=== PATIENT | male | born 1945 | race Caucasian/White ===

== ENCOUNTER 2016-03-23 09:01 | Outpatient (RCR) | payer MEDICARE, OTHER | END 2016-04-20 13:17 | LOC: OPPGERO 09:01 | DX: F33.1 Major depressive disorder, recurrent, moderate (principal); F41.1 Generalized anxiety disorder ==

== ENCOUNTER 2016-04-21 08:54 | Outpatient (RCR) | payer MEDICARE, OTHER | END 2016-05-18 10:22 | LOC: OPPGERO 08:54 | DX: F33.1 Major depressive disorder, recurrent, moderate (principal); F41.1 Generalized anxiety disorder ==

== ENCOUNTER 2016-05-19 07:28 | Outpatient (RCR) | payer MEDICARE, OTHER | END 2016-06-18 15:03 | LOC: OPPGERO 07:28 | DX: F33.1 Major depressive disorder, recurrent, moderate (principal); F41.1 Generalized anxiety disorder ==

== ENCOUNTER 2016-06-19 09:00 | Outpatient (RCR) | payer MEDICARE, OTHER | END 2016-07-16 15:28 | LOC: OPPGERO 09:00 | DX: F33.1 Major depressive disorder, recurrent, moderate (principal); F41.1 Generalized anxiety disorder ==

== ENCOUNTER 2016-07-19 08:14 | Outpatient (RCR) | payer MEDICARE, OTHER | END 2016-08-18 16:49 | LOC: OPPGERO 08:14 | DX: F33.1 Major depressive disorder, recurrent, moderate (principal); F41.1 Generalized anxiety disorder ==

== ENCOUNTER 2016-08-19 11:12 | Outpatient (RCR) | payer MEDICARE, OTHER | END 2016-09-17 15:45 | LOC: OPPGERO 11:12 | DX: F33.1 Major depressive disorder, recurrent, moderate (principal); F41.1 Generalized anxiety disorder ==

== ENCOUNTER → 2016-08-27 | Outpatient (CLI) | payer MEDICARE | LOC: LAB 16:00 | DX: Z12.11 Encounter for screening for malignant neoplasm of colon (principal) ==

== ENCOUNTER 2016-09-20 08:44 | Outpatient (RCR) | payer MEDICARE, OTHER | END 2016-10-18 15:01 | LOC: OPPGERO 08:44 | DX: F33.1 Major depressive disorder, recurrent, moderate (principal); F41.1 Generalized anxiety disorder ==

== ENCOUNTER 2016-10-19 08:49 | Outpatient (RCR) | payer MEDICARE | END 2016-11-18 14:31 | disposition still patient (30) | LOC: OPPGERO 08:49 | DX: F33.1 Major depressive disorder, recurrent, moderate (principal); F41.1 Generalized anxiety disorder ==

== ENCOUNTER 2016-11-19 07:55 | Outpatient (RCR) | payer MEDICARE, OTHER | END 2016-12-17 15:15 | LOC: OPPGERO 07:55 | DX: F33.1 Major depressive disorder, recurrent, moderate (principal); F41.1 Generalized anxiety disorder ==

== ENCOUNTER 2016-12-19 09:00 | Outpatient (RCR) | payer MEDICARE, OTHER | END 2017-01-18 16:19 | disposition still patient (30) | LOC: OPPGERO 09:00 | DX: F33.1 Major depressive disorder, recurrent, moderate (principal); F41.1 Generalized anxiety disorder ==

== ENCOUNTER 2017-01-19 09:05 | Outpatient (RCR) | payer MEDICARE, OTHER | END 2017-02-17 12:55 | disposition still patient (30) | LOC: OPPGERO 09:05 | DX: F33.1 Major depressive disorder, recurrent, moderate (principal); F41.1 Generalized anxiety disorder ==

== ENCOUNTER → 2017-02-15 | Outpatient (CLI) | payer MEDICARE, OTHER ==
[2017-02-15 14:05] LABS: EOS # 0.2 (0.04-0.40); EOS % 3.2 % (0.0-4.0); HEMATOCRIT 44.8 % (42.0-52.0); HEMOGLOBIN 15.1 g/dL (13.5-18.0); MEAN CELL VOLUME 91 fl (78-100); MEAN CORPUSCULAR HEMOGLOBIN 31 pg (27-31); MEAN CORPUSCULAR HGB CONC 34 g/dL (33-37); MEAN PLATELET VOLUME 9.9 fl (7.4-10.4); MONO # 0.7 (0.20-0.80); NEU # 3.7 (1.40-6.50); PLATELET COUNT 227 K/mm3 (130-400); RED BLOOD COUNT 4.93 M/mm3 (4.20-5.60); RED CELL DISTRIBUTION WIDTH 12.6 % (11.5-14.5); WHITE BLOOD COUNT 6.6 K/mm3 (4.8-10.8)
[2017-02-15 14:21] LABS: ALBUMIN 4.3 g/dL (3.5-5.0); BUN/CREATININE RATIO 22.7 (6.0-26.0); CALCIUM 9.7 mg/dL (8.4-10.2); POTASSIUM 4.3 mmol/L (3.6-5.0); TOTAL PROTEIN 7.1 g/dL (6.3-8.2)
== END ==
LOC: LAB 13:48
PROVIDERS: Nurse Practitioner Family
DX: E11.9 Type 2 diabetes mellitus without complications (principal); Z12.5 Encounter for screening for malignant neoplasm of prostate; I10 Essential (primary) hypertension; E78.2 Mixed hyperlipidemia

== ENCOUNTER 2017-02-18 09:00 | Outpatient (RCR) | payer MEDICARE, OTHER | END 2017-03-18 15:30 | LOC: OPPGERO 09:00 | DX: F33.9 Major depressive disorder, recurrent, unspecified (principal); F41.9 Anxiety disorder, unspecified ==

== ENCOUNTER 2017-03-22 09:00 | Outpatient (RCR) | payer MEDICARE, OTHER | END 2017-04-20 15:20 | LOC: OPPGERO 09:00 | DX: F33.9 Major depressive disorder, recurrent, unspecified (principal); F41.9 Anxiety disorder, unspecified ==

== ENCOUNTER 2017-04-21 10:31 | Outpatient (RCR) | payer MEDICARE, OTHER | END 2017-05-18 14:15 | LOC: OPPGERO 10:31 | DX: F33.1 Major depressive disorder, recurrent, moderate (principal); F41.1 Generalized anxiety disorder; E11.9 Type 2 diabetes mellitus without complications; I10 Essential (primary) hypertension; E78.00 Pure hypercholesterolemia, unspecified; T78.40XA Allergy, unspecified, initial encounter; Z88.8 Allergy status to other drugs, medicaments and biological substances; Z79.82 Long term (current) use of aspirin; Z79.84 Long term (current) use of oral hypoglycemic drugs ==

== ENCOUNTER 2017-05-19 10:04 | Outpatient (RCR) | payer MEDICARE, OTHER | END 2017-06-17 11:15 | LOC: OPPGERO 10:04 | DX: F33.1 Major depressive disorder, recurrent, moderate (principal); F41.1 Generalized anxiety disorder; E11.9 Type 2 diabetes mellitus without complications; I10 Essential (primary) hypertension; E78.00 Pure hypercholesterolemia, unspecified; J30.2 Other seasonal allergic rhinitis; Z79.84 Long term (current) use of oral hypoglycemic drugs; Z79.82 Long term (current) use of aspirin; Z88.8 Allergy status to other drugs, medicaments and biological substances ==

== ENCOUNTER 2017-06-20 08:56 | Outpatient (RCR) | payer MEDICARE, OTHER | END 2017-07-18 13:11 | LOC: OPPGERO 08:56 | DX: F33.1 Major depressive disorder, recurrent, moderate (principal); F41.1 Generalized anxiety disorder; E11.9 Type 2 diabetes mellitus without complications; I10 Essential (primary) hypertension; E78.00 Pure hypercholesterolemia, unspecified; J30.2 Other seasonal allergic rhinitis; Z88.8 Allergy status to other drugs, medicaments and biological substances; Z79.82 Long term (current) use of aspirin; Z79.84 Long term (current) use of oral hypoglycemic drugs ==

== ENCOUNTER 2017-07-19 08:35 | Outpatient (RCR) | payer MEDICARE, OTHER | END 2017-08-18 13:34 | LOC: OPPGERO 08:35 | DX: F33.1 Major depressive disorder, recurrent, moderate (principal); F41.1 Generalized anxiety disorder; E11.9 Type 2 diabetes mellitus without complications; I10 Essential (primary) hypertension; E78.5 Hyperlipidemia, unspecified; J30.2 Other seasonal allergic rhinitis; Z79.82 Long term (current) use of aspirin; Z79.84 Long term (current) use of oral hypoglycemic drugs ==

== ENCOUNTER 2017-08-19 08:15 | Outpatient (RCR) | payer MEDICARE, OTHER | END 2017-09-16 13:05 | LOC: OPPGERO 08:15 | DX: F33.1 Major depressive disorder, recurrent, moderate (principal); F41.1 Generalized anxiety disorder; E11.9 Type 2 diabetes mellitus without complications; I10 Essential (primary) hypertension; E78.00 Pure hypercholesterolemia, unspecified; Z79.84 Long term (current) use of oral hypoglycemic drugs; Z79.899 Other long term (current) drug therapy; Z63.79 Other stressful life events affecting family and household; Z59.8 Other problems related to housing and economic circumstances ==

== ENCOUNTER 2017-09-19 09:29 | Outpatient (RCR) | payer MEDICARE, OTHER | END 2017-10-18 14:15 | LOC: OPPGERO 09:29 | DX: F33.1 Major depressive disorder, recurrent, moderate (principal); F41.1 Generalized anxiety disorder; E11.9 Type 2 diabetes mellitus without complications; E78.00 Pure hypercholesterolemia, unspecified; I10 Essential (primary) hypertension; Z59.8 Other problems related to housing and economic circumstances; Z63.8 Other specified problems related to primary support group; Z79.84 Long term (current) use of oral hypoglycemic drugs; Z79.82 Long term (current) use of aspirin; Z79.899 Other long term (current) drug therapy ==

== ENCOUNTER 2017-10-19 08:28 | Outpatient (RCR) | payer MEDICARE, OTHER | END 2017-11-18 13:34 | LOC: OPPGERO 08:28 | DX: F33.1 Major depressive disorder, recurrent, moderate (principal); F41.1 Generalized anxiety disorder; Z59.8 Other problems related to housing and economic circumstances; Z63.8 Other specified problems related to primary support group; E11.9 Type 2 diabetes mellitus without complications; I10 Essential (primary) hypertension; E78.00 Pure hypercholesterolemia, unspecified; Z79.84 Long term (current) use of oral hypoglycemic drugs; Z79.82 Long term (current) use of aspirin; Z79.899 Other long term (current) drug therapy ==

== ENCOUNTER 2017-11-22 08:47 | Outpatient (RCR) | payer MEDICARE, OTHER | END 2017-12-16 13:55 | LOC: OPPGERO 08:47 | DX: F33.1 Major depressive disorder, recurrent, moderate (principal); F41.1 Generalized anxiety disorder; Z59.8 Other problems related to housing and economic circumstances; Z63.79 Other stressful life events affecting family and household; E11.9 Type 2 diabetes mellitus without complications; I10 Essential (primary) hypertension; E78.00 Pure hypercholesterolemia, unspecified; Z79.84 Long term (current) use of oral hypoglycemic drugs; Z79.82 Long term (current) use of aspirin; Z79.899 Other long term (current) drug therapy ==

== ENCOUNTER 2017-12-19 09:32 | Outpatient (RCR) | payer MEDICARE, OTHER | END 2018-01-18 14:15 | LOC: OPPGERO 09:32 | DX: F33.1 Major depressive disorder, recurrent, moderate (principal); F41.1 Generalized anxiety disorder; Z59.8 Other problems related to housing and economic circumstances; Z63.8 Other specified problems related to primary support group; E11.9 Type 2 diabetes mellitus without complications; I10 Essential (primary) hypertension; E78.00 Pure hypercholesterolemia, unspecified; J30.2 Other seasonal allergic rhinitis; Z79.84 Long term (current) use of oral hypoglycemic drugs; Z79.899 Other long term (current) drug therapy ==

== ENCOUNTER → 2018-01-09 | Outpatient (CLI) | payer MEDICARE, OTHER ==
[2018-01-09 19:06] LABS: BASO # 0.1 (0.02-0.10); EOS # 0.3 (0.04-0.40); EOS % 3.4 % (0.0-4.0); HEMATOCRIT 46.5 % (42.0-52.0); HEMOGLOBIN 15.5 g/dL (13.5-18.0); LYMPH# 1.9 (1.50-4.00); MEAN CELL VOLUME 90 fl (78-100); MEAN CORPUSCULAR HEMOGLOBIN 30 pg (27-31); MEAN CORPUSCULAR HGB CONC 33 g/dL (33-37); MEAN PLATELET VOLUME 10.1 fl (7.4-10.4); MONO # 0.7 (0.20-0.80); NEU # 5.5 (1.40-6.50); PLATELET COUNT 259 K/mm3 (130-400); RED BLOOD COUNT 5.15 M/mm3 (4.20-5.60); RED CELL DISTRIBUTION WIDTH 13.2 % (11.5-14.5); WHITE BLOOD COUNT 8.5 K/mm3 (4.8-10.8)
[2018-01-09 20:50] LABS: ALBUMIN 4.5 g/dL (3.5-5.0); CALCIUM 10.3 mg/dL (8.4-10.2); POTASSIUM 4.1 mmol/L (3.6-5.0); TOTAL BILIRUBIN 0.9 mg/dL (0.2-1.3); TOTAL PROTEIN 7.2 g/dL (6.3-8.2)
== END ==
LOC: LAB 17:30
PROVIDERS: Family Medicine
DX: Z12.5 Encounter for screening for malignant neoplasm of prostate (principal); Z00.00 Encounter for general adult medical examination without abnormal findings; E11.9 Type 2 diabetes mellitus without complications; E78.5 Hyperlipidemia, unspecified

== ENCOUNTER → 2018-01-11 | Outpatient (CLI) | payer MEDICARE, OTHER | LOC: LAB 15:59 | DX: E11.9 Type 2 diabetes mellitus without complications (principal) ==

== ENCOUNTER 2018-01-19 09:35 | Outpatient (RCR) | payer MEDICARE, OTHER | END 2018-02-17 15:14 | LOC: OPPGERO 09:35 | DX: F33.1 Major depressive disorder, recurrent, moderate (principal); F41.1 Generalized anxiety disorder; Z59.8 Other problems related to housing and economic circumstances; Z63.8 Other specified problems related to primary support group; E11.9 Type 2 diabetes mellitus without complications; I10 Essential (primary) hypertension; E78.00 Pure hypercholesterolemia, unspecified; J30.2 Other seasonal allergic rhinitis; Z79.84 Long term (current) use of oral hypoglycemic drugs; Z79.82 Long term (current) use of aspirin; Z79.899 Other long term (current) drug therapy ==

== ENCOUNTER 2018-02-20 08:21 | Outpatient (RCR) | payer MEDICARE, OTHER | END 2018-03-20 12:10 | LOC: OPPGERO 08:21 | DX: F33.1 Major depressive disorder, recurrent, moderate (principal); F41.1 Generalized anxiety disorder; Z59.8 Other problems related to housing and economic circumstances; Z63.8 Other specified problems related to primary support group; E11.9 Type 2 diabetes mellitus without complications; I10 Essential (primary) hypertension; E78.00 Pure hypercholesterolemia, unspecified; J30.2 Other seasonal allergic rhinitis; T78.1XXA Other adverse food reactions, not elsewhere classified, initial encounter; Z79.84 Long term (current) use of oral hypoglycemic drugs; Z79.82 Long term (current) use of aspirin; Z79.899 Other long term (current) drug therapy ==

== ENCOUNTER 2018-03-22 09:53 | Outpatient (RCR) | payer MEDICARE | END 2018-04-20 13:29 | LOC: OPPGERO 09:53 | DX: F33.1 Major depressive disorder, recurrent, moderate (principal); F41.1 Generalized anxiety disorder; E11.9 Type 2 diabetes mellitus without complications; I10 Essential (primary) hypertension; E78.00 Pure hypercholesterolemia, unspecified; J30.2 Other seasonal allergic rhinitis; Z79.84 Long term (current) use of oral hypoglycemic drugs; Z79.82 Long term (current) use of aspirin; Z79.899 Other long term (current) drug therapy; Z63.8 Other specified problems related to primary support group; Z59.8 Other problems related to housing and economic circumstances ==

== ENCOUNTER 2018-04-21 08:22 | Outpatient (RCR) | payer MEDICARE | END 2018-05-18 13:43 | LOC: OPPGERO 08:22 | DX: F33.1 Major depressive disorder, recurrent, moderate (principal); F41.1 Generalized anxiety disorder; E11.9 Type 2 diabetes mellitus without complications; I10 Essential (primary) hypertension; E78.00 Pure hypercholesterolemia, unspecified; J30.2 Other seasonal allergic rhinitis; Z79.84 Long term (current) use of oral hypoglycemic drugs; Z63.8 Other specified problems related to primary support group; Z79.82 Long term (current) use of aspirin; Z59.8 Other problems related to housing and economic circumstances; Z79.899 Other long term (current) drug therapy ==

== ENCOUNTER 2018-05-19 13:54 | Outpatient (RCR) | payer MEDICARE | END 2018-06-16 15:20 | LOC: OPPGERO 13:54 | DX: F32.0 Major depressive disorder, single episode, mild (principal); F41.1 Generalized anxiety disorder; E11.9 Type 2 diabetes mellitus without complications; I10 Essential (primary) hypertension; E78.00 Pure hypercholesterolemia, unspecified ==

== ENCOUNTER 2018-06-19 08:57 | Outpatient (RCR) | payer MEDICARE | END 2018-07-18 14:33 | LOC: OPPGERO 08:57 | DX: F33.1 Major depressive disorder, recurrent, moderate (principal); F41.1 Generalized anxiety disorder; I10 Essential (primary) hypertension; E78.00 Pure hypercholesterolemia, unspecified; E11.9 Type 2 diabetes mellitus without complications ==

== ENCOUNTER 2018-07-19 08:29 | Outpatient (RCR) | payer MEDICARE | END 2018-08-18 13:28 | LOC: OPPGERO 08:29 | DX: F33.1 Major depressive disorder, recurrent, moderate (principal); F41.1 Generalized anxiety disorder; E11.9 Type 2 diabetes mellitus without complications; I10 Essential (primary) hypertension; E78.00 Pure hypercholesterolemia, unspecified ==

== ENCOUNTER 2018-08-21 08:59 | Outpatient (RCR) | payer MEDICARE | END 2018-09-15 14:55 | LOC: OPPGERO 08:59 | DX: F33.1 Major depressive disorder, recurrent, moderate (principal); F41.8 Other specified anxiety disorders; E11.9 Type 2 diabetes mellitus without complications; I10 Essential (primary) hypertension; E78.00 Pure hypercholesterolemia, unspecified; T78.40XA Allergy, unspecified, initial encounter; Z79.84 Long term (current) use of oral hypoglycemic drugs; Z79.899 Other long term (current) drug therapy ==

== ENCOUNTER → 2018-10-16 | Outpatient (CLI) | payer MEDICARE ==
[2018-10-16 14:19] LABS: CALCIUM 9.9 mg/dL (8.3-10.5)
== END ==
LOC: LAB 13:47
PROVIDERS: Family Medicine
DX: E11.22 Type 2 diabetes mellitus with diabetic chronic kidney disease (principal); N18.2 Chronic kidney disease, stage 2 (mild)

== ENCOUNTER → 2019-03-28 | Outpatient (CLI) | payer MEDICARE | LOC: LAB 13:56 | DX: E11.9 Type 2 diabetes mellitus without complications (principal); R97.20 Elevated prostate specific antigen [PSA] ==

== ENCOUNTER → 2020-06-17 | Outpatient (CLI) | payer MEDICARE ==
[~2020-06-17] MED LIST: AMARYL 2MG T2 MG/TAB PO; ASPIRIN E.C. 8181 MG PO; BUSPAR 15MG TAB15 MG PO; CEPHALEXIN500 M1 PO; CHROMIUM PICO PO; COLACE100 M1 PO; COQ-1030 MG PO; DAILY VALUE1 EACH PO; DESYREL 100MG100 MG PO; GLUCOPHAGE1000 MG PO; GLUCOPHAGE500 MG/TAB PO; GOOD NEIGHBOR L10 MG PO; HCTZ 25MG25 MG PO; LEXAPRO 10MG10 MG PO; METFORMIN HYD1000 MG PO; NATURE'S BLEND400 IU PO; NORVASC 10MG10 MG PO; OMEPRAZOLE40 MG PO; PRAVASTATIN SOD80 MG PO; QUINAPRIL 20 MG PO; TADALAFIL5 M1 PO; VITAMIN C500 M7 PO; VITAMIN D350 MC4 PO
== END ==
LOC: LAB 09:21
DX: Z20.822 Contact with and (suspected) exposure to COVID-19 (principal)

== ENCOUNTER 2020-07-11 18:22 | Emergency (ER) | payer MEDICARE ==
[2020-07-11] MEDS ORDERED: METFORMIN HYD1000 MG PO (18:53)
[2020-07-11] MEDS ORDERED: DESYREL 100MG100 MG PO (18:54)
[2020-07-11] MEDS ORDERED: VITAMIN C500 M7 PO (18:55)
[2020-07-11] MEDS ORDERED: NORVASC 10MG10 MG PO (18:55)
[2020-07-11] MEDS ORDERED: ASPIRIN E.C. 8181 MG PO (18:55)
[2020-07-11] MEDS ORDERED: BUSPAR 15MG TAB15 MG PO (18:55)
[2020-07-11] MEDS ORDERED: AMARYL 2MG T2 MG/TAB PO (18:56)
[2020-07-11] MEDS ORDERED: VITAMIN D350 MC4 PO (18:56)
[2020-07-11] MEDS ORDERED: LEXAPRO 10MG10 MG PO (18:56)
[2020-07-11] MEDS ORDERED: COLACE100 M1 PO (18:56)
[2020-07-11] MEDS ORDERED: COQ-1030 MG PO (18:56)
[2020-07-11] MEDS ORDERED: CHROMIUM PICO PO (18:56)
[2020-07-11 18:57] LABS: HEMATOCRIT 39.7 % (42.0-52.0); HEMOGLOBIN 13.1 g/dL (13.5-18.0); MEAN CELL VOLUME 90 fl (78-100); MEAN CORPUSCULAR HEMOGLOBIN 30 pg (27-31); MEAN CORPUSCULAR HGB CONC 33 g/dL (33-37); MEAN PLATELET VOLUME 9.5 fl (7.4-10.4); PLATELET COUNT 228 K/mm3 (130-400); RED BLOOD COUNT 4.39 M/mm3 (4.20-5.60); WHITE BLOOD COUNT 13.6 K/mm3 (4.8-10.8)
[2020-07-11] MEDS ORDERED: DAILY VALUE1 EACH PO (18:57)
[2020-07-11] MEDS ORDERED: HCTZ 25MG25 MG PO (18:57)
[2020-07-11] MEDS ORDERED: GOOD NEIGHBOR L10 MG PO (18:57)
[2020-07-11] MEDS ORDERED: GLUCOPHAGE1000 MG PO (18:57)
[2020-07-11] MEDS ORDERED: QUINAPRIL 20 MG PO (18:58)
[2020-07-11] MEDS ORDERED: TADALAFIL5 M1 PO (18:58)
[2020-07-11 19:10] LABS: SODIUM 135 mmol/L (136-145)
[2020-07-11 19:11] LABS: CALCIUM 9.4 mg/dL (8.3-10.5)
[2020-07-11 19:12] LABS: GLUCOSE 176 mg/dL (75-110)
[2020-07-11] MEDS ORDERED: GLUCOPHAGE500 MG/TAB PO (19:12)
[2020-07-11 19:13] LABS: TOTAL PROTEIN 7.4 g/dL (6.2-8.1)
[2020-07-11] MEDS ORDERED: OMEPRAZOLE40 MG PO (19:13)
[2020-07-11 19:14] LABS: CARBON DIOXIDE 23 mmol/L (23-31); TOTAL BILIRUBIN 0.7 mg/dL (0.2-1.2)
[2020-07-11] MEDS ORDERED: PRAVASTATIN SOD80 MG PO (19:14)
[2020-07-11] MEDS ORDERED: NATURE'S BLEND400 IU PO (19:15)
[2020-07-11 19:18] LABS: AST-SGOT 19 U/L (5-34)
[2020-07-11 19:19] LABS: ALT/SGPT 22 U/L (0-55)
[2020-07-11 19:23] LABS: D-DIMER 0.62 mg/L FEU (0.15-0.50)
[2020-07-11 19:29] LABS: LYMPHOCYTE 4 % (20-51); MONOCYTE 8 % (3-10); NEUTROPHILS 85 % (42-75)
[2020-07-11 19:30] LABS: TARGET CELLS 1+; TEAR DROP CELLS 1+
[2020-07-11 19:33] LABS: TROPONIN-I < 0.03 ng/mL (<0.030)
[2020-07-11 20:14] LABS: URINE APPEARANCE HAZY; URINE BILIRUBIN NEGATIVE (NEGATIVE); URINE BLOOD 250 ery/uL (NEGATIVE); URINE COLOR YELLOW; URINE GLUCOSE NEGATIVE (NEGATIVE); URINE KETONE 2+ (NEGATIVE); URINE LEUKOCYTE ESTERASE 2+ (NEGATIVE); URINE NITRATE NEGATIVE (NEGATIVE); URINE PROTEIN(semi-quant) 3+ mg/dL (NEGATIVE); URINE UROBILINOGEN NORMAL (NORMAL); URINE WBC >50 /hpf (0-3)
[2020-07-11] MEDS ORDERED: CEPHALEXIN500 M1 PO (23:32)
[2020-07-11 23:45] VITALS: BP 150/83
== END 2020-07-11 23:45 | disposition home or self-care (01) ==
LOC: ED 18:22
PROVIDERS: Family Medicine
DX: N39.0 Urinary tract infection, site not specified (principal); K59.00 Constipation, unspecified; G47.30 Sleep apnea, unspecified; R00.0 Tachycardia, unspecified; E11.9 Type 2 diabetes mellitus without complications; I10 Essential (primary) hypertension; E78.5 Hyperlipidemia, unspecified; K21.9 Gastro-esophageal reflux disease without esophagitis; Z20.822 Contact with and (suspected) exposure to COVID-19; Z79.84 Long term (current) use of oral hypoglycemic drugs; Z79.82 Long term (current) use of aspirin
CPT/HCPCS: J0696; J7030; Q9967

== ENCOUNTER → 2021-02-11 | Outpatient (CLI) | payer MEDICARE ==
[2021-02-11 18:49] LABS: BASO # 0.07 K/mm3 (0.02-0.10); EOS # 0.24 K/mm3 (0.04-0.40); EOS % 2.9 % (0.0-4.0); HEMATOCRIT 48.6 % (42.0-52.0); HEMOGLOBIN 16.3 g/dL (13.5-18.0); LYMPH# 2.12 K/mm3 (1.50-4.00); MEAN CELL VOLUME 91 fl (78-100); MEAN CORPUSCULAR HEMOGLOBIN 31 pg (27-31); MEAN CORPUSCULAR HGB CONC 34 g/dL (33-37); MEAN PLATELET VOLUME 9.3 fl (7.4-10.4); MONO # 0.73 K/mm3 (0.20-0.80); NEU # 4.98 K/mm3 (1.40-6.50); PLATELET COUNT 250 K/mm3 (130-400); RED BLOOD COUNT 5.35 M/mm3 (4.20-5.60); RED CELL DISTRIBUTION WIDTH 12.3 % (11.5-14.5); WHITE BLOOD COUNT 8.2 K/mm3 (4.8-10.8)
[2021-02-11 19:00] LABS: ALBUMIN 4.5 g/dL (3.4-4.8)
[2021-02-11 19:01] LABS: POTASSIUM 4.3 mmol/L (3.5-5.1)
[2021-02-11 19:02] LABS: CALCIUM 10.4 mg/dL (8.3-10.5)
[2021-02-11 19:03] LABS: TOTAL PROTEIN 7.7 g/dL (6.2-8.1)
[2021-02-11 19:05] LABS: TOTAL BILIRUBIN 0.6 mg/dL (0.2-1.2)
== END ==
LOC: LAB 18:28
PROVIDERS: Nurse Practitioner
DX: H02.409 Unspecified ptosis of unspecified eyelid (principal); R42 Dizziness and giddiness

== ENCOUNTER → 2021-02-24 | Outpatient (CLI) | payer MEDICARE ==
[2021-02-25 22:32] LABS: T3 TOTAL 91 ng/dL (35-193)
== END ==
LOC: LAB 17:35
DX: H02.412 Mechanical ptosis of left eyelid (principal)

== ENCOUNTER → 2021-03-31 | Outpatient (CLI) | payer MEDICARE ==
[2021-03-31 16:59] LABS: BASO # 0.06 K/mm3 (0.02-0.10); EOS # 0.25 K/mm3 (0.04-0.40); HEMATOCRIT 47.9 % (42.0-52.0); LYMPH# 1.98 K/mm3 (1.50-4.00); MEAN CELL VOLUME 90 fl (78-100); MEAN CORPUSCULAR HEMOGLOBIN 30 pg (27-31); MEAN CORPUSCULAR HGB CONC 33 g/dL (33-37); MEAN PLATELET VOLUME 9.6 fl (7.4-10.4); MONO # 0.85 K/mm3 (0.20-0.80); NEU # 5.04 K/mm3 (1.40-6.50); PLATELET COUNT 258 K/mm3 (130-400); RED CELL DISTRIBUTION WIDTH 12.4 % (11.5-14.5); WHITE BLOOD COUNT 8.2 K/mm3 (4.8-10.8)
== END ==
LOC: LAB 16:29
PROVIDERS: Family Medicine
DX: Z00.00 Encounter for general adult medical examination without abnormal findings (principal); E11.9 Type 2 diabetes mellitus without complications

== ENCOUNTER → 2021-05-18 | Outpatient (CLI) | payer MEDICARE | LOC: RAD 16:57 | DX: M47.816 Spondylosis without myelopathy or radiculopathy, lumbar region (principal) ==

== ENCOUNTER → 2021-11-19 | Outpatient (CLI) | payer MEDICARE | LOC: LAB 14:03 | DX: R97.20 Elevated prostate specific antigen [PSA] (principal) ==

== ENCOUNTER → 2022-05-03 | Outpatient (CLI) | payer MEDICARE ==
[2022-05-03 16:42] LABS: BASO # 0.04 K/mm3 (0.02-0.10); EOS # 0.25 K/mm3 (0.04-0.40); EOS % 2.8 % (0.0-4.0); HEMATOCRIT 49.3 % (42.0-52.0); HEMOGLOBIN 16.4 g/dL (13.5-18.0); LYMPH# 1.85 K/mm3 (1.50-4.00); MEAN CELL VOLUME 91 fl (78-100); MEAN CORPUSCULAR HEMOGLOBIN 30 pg (27-31); MEAN CORPUSCULAR HGB CONC 33 g/dL (33-37); MEAN PLATELET VOLUME 9.7 fl (7.4-10.4); MONO # 0.68 K/mm3 (0.20-0.80); NEU # 6.19 K/mm3 (1.40-6.50); PLATELET COUNT 232 K/mm3 (130-400); RED BLOOD COUNT 5.42 M/mm3 (4.20-5.60); RED CELL DISTRIBUTION WIDTH 12.5 % (11.5-14.5)
[2022-05-03 16:48] LABS: ALBUMIN 4.4 g/dL (3.4-4.8); POTASSIUM 4.2 mmol/L (3.5-5.1)
[2022-05-03 16:49] LABS: CALCIUM 10.2 mg/dL (8.3-10.5)
[2022-05-03 16:53] LABS: TOTAL BILIRUBIN 0.7 mg/dL (0.2-1.2)
[2022-05-03 17:23] LABS: TOTAL PROTEIN 8.3 g/dL (6.2-8.1)
== END ==
LOC: LAB 16:17
PROVIDERS: Family Medicine
DX: Z00.00 Encounter for general adult medical examination without abnormal findings (principal); I12.9 Hypertensive chronic kidney disease with stage 1 through stage 4 chronic kidney disease, or unspecified chronic kidney disease; N18.30 Chronic kidney disease, stage 3 unspecified; K21.00 Gastro-esophageal reflux disease with esophagitis, without bleeding; G70.00 Myasthenia gravis without (acute) exacerbation; F32.A Depression, unspecified; E66.9 Obesity, unspecified; E11.40 Type 2 diabetes mellitus with diabetic neuropathy, unspecified; J30.89 Other allergic rhinitis; E78.5 Hyperlipidemia, unspecified; E55.9 Vitamin D deficiency, unspecified; G47.09 Other insomnia

== ENCOUNTER → 2022-06-21 | Outpatient (CLI) | payer MEDICARE ==
[2022-06-21 11:33] LABS: BASO # 0.02 K/mm3 (0.02-0.10); EOS # 0.07 K/mm3 (0.04-0.40); EOS % 3.3 % (0.0-4.0); HEMATOCRIT 24.3 % (42.0-52.0); HEMOGLOBIN 8.1 g/dL (13.5-18.0); LYMPH# 0.67 K/mm3 (1.50-4.00); MEAN CELL VOLUME 93 fl (78-100); MEAN CORPUSCULAR HEMOGLOBIN 31 pg (27-31); MEAN CORPUSCULAR HGB CONC 33 g/dL (33-37); MEAN PLATELET VOLUME 10.1 fl (7.4-10.4); MONO # 0.16 K/mm3 (0.20-0.80); NEU # 1.18 K/mm3 (1.40-6.50); RED BLOOD COUNT 2.62 M/mm3 (4.20-5.60); RED CELL DISTRIBUTION WIDTH 12.9 % (11.5-14.5); WHITE BLOOD COUNT 2.1 K/mm3 (4.8-10.8)
[2022-06-21 11:34] LABS: PLATELET COUNT 279 K/mm3 (130-400)
[2022-06-21 11:44] LABS: POTASSIUM 5.2 mmol/L (3.5-5.1)
[2022-06-21 11:46] LABS: TOTAL PROTEIN 7.2 g/dL (6.2-8.1)
[2022-06-21 11:48] LABS: TOTAL BILIRUBIN 0.4 mg/dL (0.2-1.2)
== END ==
LOC: LAB 11:10
PROVIDERS: Family Medicine
DX: I12.9 Hypertensive chronic kidney disease with stage 1 through stage 4 chronic kidney disease, or unspecified chronic kidney disease (principal); N18.30 Chronic kidney disease, stage 3 unspecified; E11.40 Type 2 diabetes mellitus with diabetic neuropathy, unspecified; F32.A Depression, unspecified; E78.5 Hyperlipidemia, unspecified; K21.00 Gastro-esophageal reflux disease with esophagitis, without bleeding; G70.00 Myasthenia gravis without (acute) exacerbation; E66.9 Obesity, unspecified; J30.89 Other allergic rhinitis; G47.09 Other insomnia; R97.20 Elevated prostate specific antigen [PSA]

== ENCOUNTER → 2023-05-18 | Outpatient (CLI) | payer MEDICARE ==
[2023-05-18 15:27] LABS: BASO # 0.03 K/mm3 (0.02-0.10); EOS # 0.23 K/mm3 (0.04-0.40); EOS % 3.4 % (0.0-4.0); HEMOGLOBIN 15.2 g/dL (13.5-18.0); LYMPH# 1.71 K/mm3 (1.50-4.00); MEAN CELL VOLUME 92 fl (78-100); MEAN CORPUSCULAR HEMOGLOBIN 30 pg (27-31); MEAN CORPUSCULAR HGB CONC 32 g/dL (33-37); MEAN PLATELET VOLUME 9.6 fl (7.4-10.4); NEU # 4.26 K/mm3 (1.40-6.50); PLATELET COUNT 223 K/mm3 (130-400); RED BLOOD COUNT 5.09 M/mm3 (4.20-5.60); RED CELL DISTRIBUTION WIDTH 12.4 % (11.5-14.5); WHITE BLOOD COUNT 6.8 K/mm3 (4.8-10.8)
[2023-05-18 15:31] LABS: CALCIUM 10.7 mg/dL (8.3-10.5)
[2023-05-18 15:33] LABS: TOTAL PROTEIN 7.1 g/dL (6.2-8.1)
[2023-05-18 15:35] LABS: TOTAL BILIRUBIN 0.7 mg/dL (0.2-1.2)
== END ==
LOC: LAB 14:57
PROVIDERS: Family Medicine
DX: I10 Essential (primary) hypertension (principal); E78.5 Hyperlipidemia, unspecified; E11.9 Type 2 diabetes mellitus without complications; R97.20 Elevated prostate specific antigen [PSA]